=== PATIENT | male | born 1975 | race African-American/Black ===

== ENCOUNTER 2018-10-12 23:17 | Emergency (ER) | payer MEDICARE, MEDICAID ==
[~2018-10-12] VITALS: Ht 162.6 cm; Wt 53.0 kg
[2018-10-12 23:39] VITALS: BP 119/74
== END 2018-10-13 00:15 | disposition left against medical advice (07) ==
LOC: ER 23:17
DX: Z53.21 Procedure and treatment not carried out due to patient leaving prior to being seen by health care provider (principal)

== ENCOUNTER 2021-11-04 18:07 | Emergency (ER) | payer MEDICARE, MEDICAID ==
[~2021-11-04] VITALS: Ht 162.6 cm; Wt 68.0 kg
[2021-11-04] MEDS ORDERED: AMOX-424 MT (21:28)
[2021-11-04] MEDS ORDERED: IBUP-2030 MT (21:28)
[2021-11-04] MEDS ORDERED: IBUPROFEN 800MG TABLET PO ONE (21:30)
[2021-11-04] MEDS ORDERED: AMOXICILLIN/POTASSIUM CLAVULANATE 875/125MG TAB PO ONE (21:30)
[2021-11-04 22:11] VITALS: BP 132/111
== END 2021-11-04 22:15 | disposition home or self-care (01) ==
LOC: ER 18:07
DX: K04.7 Periapical abscess without sinus (principal); F12.10 Cannabis abuse, uncomplicated; F15.10 Other stimulant abuse, uncomplicated
CPT/HCPCS: 99283

== ENCOUNTER 2022-02-01 15:26 | Emergency (ER) | payer MEDICARE, MEDICAID ==
[~2022-02-01] VITALS: Ht 162.6 cm; Wt 80.0 kg
[~2022-02-01 15:26] MED LIST: AMOX-424 MT; IBUP-2030 MT
[2022-02-01] MEDS ORDERED: CEPH500C2 MT (18:00)
[2022-02-01 18:11] VITALS: BP 118/76
== END 2022-02-01 18:11 | disposition home or self-care (01) ==
LOC: ER 15:26
DX: L02.211 Cutaneous abscess of abdominal wall (principal); F12.10 Cannabis abuse, uncomplicated; F15.10 Other stimulant abuse, uncomplicated
CPT/HCPCS: 99283

== ENCOUNTER 2022-10-16 22:45 | Emergency (ER) | payer MEDICARE, MEDICAID ==
[~2022-10-16] VITALS: Ht 162.6 cm; Wt 52.0 kg
[~2022-10-16 22:45] MED LIST changes: +CEPH500C2 MT; +PETR5OIN3 TP
[2022-10-16 22:56] VITALS: BP 119/87
== END 2022-10-17 00:22 | disposition home or self-care (01) ==
LOC: ER 22:52
DX: Z76.0 Encounter for issue of repeat prescription (principal)
CPT/HCPCS: 99281

== ENCOUNTER 2023-11-02 22:39 | Emergency (ER) | payer MEDICAID, MEDICARE ==
[~2023-11-02] VITALS: Ht 167.6 cm; Wt 57.0 kg
[2023-11-02 22:50] VITALS: O2SAT 98
[2023-11-02 23:40] LABS: BASOPHILS % 0.1 % (0.0-2.0); EOSINOPHILS % 1.3 % (0.0-5.0); HEMATOCRIT. 47.3 % (42.0-52.0); HEMOGLOBIN. 16.2 g/dL (14.0-18.0); LYMPHOCYTES % 15.1 % (20.0-50.0); MEAN CORPUSCULAR HEMOGLOBIN 31.8 pg (28.0-32.0); MEAN CORPUSCULAR HGB CONC 34.3 g/dL (31.0-37.0); MEAN CORPUSCULAR VOLUME 92.7 fL (80.0-94.0); MEAN PLATELET VOLUME 6.4 fl (7.4-10.4); MONOCYTES % 7.6 % (2.0-8.0); NEUTROPHILS % 75.9 % (40.0-76.0); PLATELET 306 x1000/uL (130-400); RED CELL DISTRIBUTION WIDTH 14.1 % (11.6-14.6); WHITE BLOOD COUNT 4.5 x1000/uL (4.5-11.0)
[2023-11-03] MEDS: SODIUM CHLORIDE 0.9% 1,000 ML IV ONE (00:05)
[2023-11-03] MEDS: METOCLOPRAMIDE HCL 10MG/2ML VIAL IV STA (00:05)
[2023-11-03 01:01] VITALS: TEMP 98.4
[2023-11-03 01:19] LABS: ALANINE AMINOTRANSFERASE 16 IU/L (10-49); ALBUMIN 4.2 g/dL (3.2-4.8); ASPARTATE AMINOTRANSFERASE 20 IU/L (<34); BILIRUBIN TOTAL 0.5 mg/dL (0.1-1.0); CALCIUM 8.3 mg/dL (8.7-10.4); CARBON DIOXIDE 28 mEq/L (21-32); CHLORIDE 102 mEq/L (98-107); CREATININE 0.7 mg/dL (0.6-1.3); GLUCOSE 120 mg/dL (70-105); POTASSIUM 3.7 mEq/L (3.5-5.1); PROTEIN TOTAL 7.6 g/dL (6.0-8.3); SODIUM 134 mEq/L (136-145); UREA NITROGEN BLOOD 7 mg/dL (9-23)
[2023-11-03] MEDS ORDERED: IOHEXOL-300 100 ML BOTTLE ONE (02:46)
[2023-11-03] MEDS ORDERED: IMOD MT (04:19)
[2023-11-03 04:32] VITALS: BP 119/77; PULSE 83; RESP 12
== END 2023-11-03 04:48 | disposition home or self-care (01) ==
LOC: ER 22:39
DX: K52.89 Other specified noninfective gastroenteritis and colitis (principal); R19.7 Diarrhea, unspecified; F12.90 Cannabis use, unspecified, uncomplicated; F15.90 Other stimulant use, unspecified, uncomplicated
CPT/HCPCS: 99285; 96374; 80053; 83605; 83690; 85025; 36415; 74177; J2765; J7030; Q9967

== ENCOUNTER 2024-05-31 09:55 | Emergency (ER) | payer MEDICARE, MEDICAID ==
[~2024-05-31] VITALS: Ht 162.6 cm; Wt 55.0 kg
[~2024-05-31 09:55] MED LIST changes: +IMOD MT
[2024-05-31 10:16] VITALS: TEMP 99; O2SAT 99
[2024-05-31 12:57] LABS: BASOPHILS % 0.5 % (0.0-2.0); HEMATOCRIT. 44.7 % (42.0-52.0); HEMOGLOBIN. 14.9 g/dL (14.0-18.0); LYMPHOCYTES % 21.3 % (20.0-50.0); MEAN CORPUSCULAR HEMOGLOBIN 30.5 pg (28.0-32.0); MEAN CORPUSCULAR HGB CONC 33.3 g/dL (31.0-37.0); MEAN CORPUSCULAR VOLUME 91.6 fL (80.0-94.0); MEAN PLATELET VOLUME 6.5 fl (7.4-10.4); MONOCYTES % 9.3 % (2.0-8.0); NEUTROPHILS % 65.9 % (40.0-76.0); PLATELET 260 x1000/uL (130-400); RED BLOOD CELL COUNT 4.88 mill/uL (4.7-6.1); RED CELL DISTRIBUTION WIDTH 13.4 % (11.6-14.6); WHITE BLOOD COUNT 4.4 x1000/uL (4.5-11.0)
[2024-05-31] MEDS: IBUPROFEN 600MG TABLET PO NR (13:04)
[2024-05-31 13:07] LABS: CHLORIDE 103 mEq/L (98-107); POTASSIUM 3.6 mEq/L (3.5-5.1); SODIUM 138 mEq/L (136-145)
[2024-05-31 13:08] LABS: CALCIUM 9.5 mg/dL (8.7-10.4); CARBON DIOXIDE 31 mEq/L (21-32)
[2024-05-31 13:13] LABS: CREATININE 0.9 mg/dL (0.6-1.3); GLUCOSE 107 mg/dL (70-105); UREA NITROGEN BLOOD 8 mg/dL (9-23)
[2024-05-31] MEDS: LIDOCAINE HCL 1% 20ML VIAL INFIL NR (13:30)
[2024-05-31] MEDS ORDERED: CEPH500T MT (14:16)
[2024-05-31] MEDS ORDERED: SULF1TAB48 MT (14:16)
[2024-05-31 14:32] VITALS: BP 124/66; PULSE 68; RESP 16; O2SAT 99
== END 2024-05-31 14:46 | disposition home or self-care (01) ==
LOC: ER 09:55
DX: L02.31 Cutaneous abscess of buttock (principal); F12.90 Cannabis use, unspecified, uncomplicated; F15.90 Other stimulant use, unspecified, uncomplicated; Z79.899 Other long term (current) drug therapy
CPT/HCPCS: 99283; 80048; 85025; 36415; J3490

== ENCOUNTER 2024-08-14 05:05 | Inpatient (IN) | payer MEDICARE, MEDICAID ==
[~2024-08-14] VITALS: Ht 177.8 cm; Wt 57.2 kg
[~2024-08-14 05:05] MED LIST changes: +CEPH500T MT; +SULF1TAB48 MT
[2024-08-14 05:08] VITALS: O2SAT 100
[2024-08-14 06:28] LABS: BASOPHILS % 0.3 % (0.0-2.0); EOSINOPHILS % 1.4 % (0.0-5.0); HEMATOCRIT. 47.2 % (42.0-52.0); HEMOGLOBIN. 15.7 g/dL (14.0-18.0); LYMPHOCYTES % 17.4 % (20.0-50.0); MEAN CORPUSCULAR HEMOGLOBIN 30.5 pg (28.0-32.0); MEAN CORPUSCULAR HGB CONC 33.3 g/dL (31.0-37.0); MEAN CORPUSCULAR VOLUME 91.3 fL (80.0-94.0); MEAN PLATELET VOLUME 6.5 fl (7.4-10.4); MONOCYTES % 8.4 % (2.0-8.0); NEUTROPHILS % 72.5 % (40.0-76.0); PLATELET 295 x1000/uL (130-400); RED BLOOD CELL COUNT 5.17 mill/uL (4.7-6.1); RED CELL DISTRIBUTION WIDTH 13.1 % (11.6-14.6); WHITE BLOOD COUNT 5.4 x1000/uL (4.5-11.0)
[2024-08-14 06:33] LABS: CHLORIDE 102 mEq/L (98-107); POTASSIUM 4.1 mEq/L (3.5-5.1); SODIUM 137 mEq/L (136-145)
[2024-08-14 06:34] LABS: CALCIUM 9.4 mg/dL (8.7-10.4); CARBON DIOXIDE 29 mEq/L (21-32)
[2024-08-14 06:39] LABS: CREATININE 0.8 mg/dL (0.6-1.3); GLUCOSE 141 mg/dL (70-105); UREA NITROGEN BLOOD 7 mg/dL (9-23)
[2024-08-14] MEDS ORDERED: KETOROLAC 30MG/ML VIAL IV STA (07:38)
[2024-08-14] MEDS ORDERED: ONDANSETRON HCL 4MG/2ML INJ IV ONE (07:45)
[2024-08-14] MEDS ORDERED: SODIUM CHLORIDE 0.9% 1,000 ML IV ONE (07:45)
[2024-08-14 09:44] LABS: ALANINE AMINOTRANSFERASE 12 IU/L (10-49); ALBUMIN 4.2 g/dL (3.2-4.8); ASPARTATE AMINOTRANSFERASE 17 IU/L (<34); BILIRUBIN TOTAL 0.3 mg/dL (0.1-1.0); PROTEIN TOTAL 8.2 g/dL (6.0-8.3)
[2024-08-14] MEDS ORDERED: ONDANSETRON HCL 4MG/2ML INJ IV PRN (09:45)
[2024-08-14] MEDS ORDERED: IPRATROPIUM/ALBUTEROL 0.5-3(2.5)MG/3ML NEB HHN PRN (09:45)
[2024-08-14] MEDS ORDERED: GUAIFENESIN 200MG/10ML SUGAR FREE UDC PO PRN (09:45)
[2024-08-14] MEDS ORDERED: ACETAMINOPHEN 325MG TABLET PO PRN ×2 (09:45)
[2024-08-14] MEDS ORDERED: DOCUSATE SODIUM 100MG CAPSULE PO PRN (09:45)
[2024-08-14] MEDS ORDERED: LOPERAMIDE HCL 2MG CAPSULE PO PRN (09:45)
[2024-08-14 09:49] LABS: BILIRUBIN DIRECT < 0.1 mg/dL (<=3.0)
[2024-08-14] MEDS: THIAMINE HCL 100MG TABLET PO SCH (10:00)
[2024-08-14 13:30] VITALS: BP 119/70; PULSE 84; TEMP 36.22512; O2SAT 98
[2024-08-14] MEDS: SODIUM CHLORIDE 0.9% 1,000 ML IV SCH (13:30)
[2024-08-14 13:35] VITALS: BP 119/70; PULSE 84; RESP 20; TEMP 36.2512
[2024-08-14] MEDS: PIPERACILLIN/TAZO 3.375G/50ML 50 ML IV SCH (14:27)
[2024-08-14] MEDS: KETOROLAC 15MG/ML VIAL IV PRN (14:28)
[2024-08-14 16:00] VITALS: BP 115/73; PULSE 93; TEMP 36.16956; O2SAT 98
[2024-08-14 20:00] VITALS: BP 114/69; PULSE 91; RESP 20; TEMP 36.44736; O2SAT 97
[2024-08-15] VITALS: BP 118/79; PULSE 78; RESP 20; TEMP 36.55848; O2SAT 98
[2024-08-15 04:00] VITALS: BP 116/74; PULSE 76; RESP 19; TEMP 36.78072; O2SAT 99
[2024-08-15] MEDS: PANTOPRAZOLE SODIUM 40 MG/VIAL IV SCH (06:16)
[2024-08-15 08:00] VITALS: BP 120/78; PULSE 89; RESP 20; TEMP 36.114; O2SAT 100
[2024-08-15 12:00] VITALS: BP 115/72; PULSE 68; RESP 20; TEMP 36.50292; O2SAT 100
[2024-08-15 12:21] LABS: BASOPHILS % 0.4 % (0.0-2.0); EOSINOPHILS % 4.8 % (0.0-5.0); HEMATOCRIT. 50.1 % (42.0-52.0); HEMOGLOBIN. 16.4 g/dL (14.0-18.0); LYMPHOCYTES % 45.3 % (20.0-50.0); MEAN CORPUSCULAR HEMOGLOBIN 30.1 pg (28.0-32.0); MEAN CORPUSCULAR HGB CONC 32.7 g/dL (31.0-37.0); MEAN CORPUSCULAR VOLUME 91.9 fL (80.0-94.0); NEUTROPHILS % 39.5 % (40.0-76.0); PLATELET 284 x1000/uL (130-400); RED BLOOD CELL COUNT 5.45 mill/uL (4.7-6.1); RED CELL DISTRIBUTION WIDTH 13.1 % (11.6-14.6); WHITE BLOOD COUNT 3.2 x1000/uL (4.5-11.0)
[2024-08-15 12:33] LABS: CHLORIDE 100 mEq/L (98-107); POTASSIUM 3.7 mEq/L (3.5-5.1)
[2024-08-15 12:34] LABS: CARBON DIOXIDE 27 mEq/L (21-32); SODIUM 134 mEq/L (136-145)
[2024-08-15 12:39] LABS: CREATININE 0.9 mg/dL (0.6-1.3); GLUCOSE 111 mg/dL (70-105); UREA NITROGEN BLOOD 6 mg/dL (9-23)
[2024-08-15 12:41] LABS: THYROID STIMULATING HORMONE 3.31 uIU/mL (0.55-4.78)
[2024-08-16 08:08] LABS: % CD 4 POS. LYMPHOCYTES 37.8 % (30.8-58.5); % CD 8 POS. LYMPH 42.7 % (12.0-35.5); ABSOLUTE CD 3 972 /uL (622-2402); ABSOLUTE CD 4 HELPER 454 /uL (359-1519); ABSOLUTE CD 8 SUPPRESSOR 512 /uL (109-897); ABSOLUTE EOSINOPHILS 0.1 x10E3/uL (0.0-0.4); ABSOLUTE LYMPHOCYTES 1.2 x10E3/uL (0.7-3.1); ABSOLUTE MONOCYTES 0.4 x10E3/uL (0.1-0.9); ABSOLUTE NEUTROPHILS 2.6 x10E3/uL (1.4-7.0); BASOPHILS 1 % (Not Estab.); CD4/CD8 RATIO 0.89 (0.92-3.72); EOSINOPHILS 3 % (Not Estab.); HEMATOCRIT 50.2 % (37.5-51.0); HEMOGLOBIN 16.1 g/dL (13.0-17.7); IMMATURE GRANULOCYTES 0 % (Not Estab.); LYMPHOCYTES 27 % (Not Estab.); MEAN CORPUSCULAR HEMOGLOBIN 29.2 pg (26.6-33.0); MEAN CORPUSCULAR HGB CONC. 32.1 g/dL (31.5-35.7); MEAN CORPUSCULAR VOLUME 91 fL (79-97); MONOCYTES 9 % (Not Estab.); NEUTROPHILS 60 % (Not Estab.); PLATELETS 304 x10E3/uL (150-450); RBC 5.51 x10E6/uL (4.14-5.80); RED CELL DISTRIBUTION WIDTH 12.8 % (11.6-15.4); WBC 4.3 x10E3/uL (3.4-10.8)
== END 2024-08-15 16:34 | disposition left against medical advice (07) | DRG 977 ==
LOC: ER 05:05 → 6WST 08:15 → EDBEDREQ 08:19 → EDBEDREQTM 08:19
PROVIDERS: ADMIT Internal Medicine; ATTEND Internal Medicine
DX: K52.9 Noninfective gastroenteritis and colitis, unspecified (principal); B20 Human immunodeficiency virus [HIV] disease; Z59.00 Homelessness unspecified; Z53.29 Procedure and treatment not carried out because of patient's decision for other reasons; K63.9 Disease of intestine, unspecified; R15.9 Full incontinence of feces; F55.2 Abuse of laxatives; Z91.199 Patient's noncompliance with other medical treatment and regimen due to unspecified reason; Z79.899 Other long term (current) drug therapy
CPT/HCPCS: 36415; 80048; 80076; 80305; 82270; 84145; 84443; 85025; 85651; 86359; 86360; 87015; 87045; 87177; 87209; 87427; 87449; 87493; 99291; J1885; J2470; J2543; J7030

== ENCOUNTER 2024-11-07 20:22 | Emergency (ER) | payer MEDICARE, BC ==
[~2024-11-07] VITALS: Ht 162.6 cm; Wt 57.0 kg
[2024-11-07 20:33] VITALS: O2SAT 99
[2024-11-08] MEDS ORDERED: SULF1TAB48 MT (00:12)
[2024-11-08 00:27] VITALS: BP 126/70; PULSE 91; RESP 17; TEMP 37.1; O2SAT 99
[2024-11-08] MEDS ORDERED: CEFTRIAXONE SODIUM 500MG VIAL IM ONE (00:30)
[2024-11-08] MEDS ORDERED: LIDOCAINE HCL 1% 20ML VIAL INFIL ONE (00:30)
[2024-11-08] MEDS ORDERED: KETOROLAC 15MG/ML VIAL IM ONE (00:30)
== END 2024-11-08 00:28 | disposition home or self-care (01) ==
LOC: ER 20:22
DX: L02.31 Cutaneous abscess of buttock (principal); F12.90 Cannabis use, unspecified, uncomplicated; F15.90 Other stimulant use, unspecified, uncomplicated; Z79.899 Other long term (current) drug therapy
CPT/HCPCS: 99283; J1885; J0696; J3490

== ENCOUNTER 2024-12-14 01:52 | Emergency (ER) | payer MEDICARE, BC ==
[2024-12-14 02:15] VITALS: PULSE 108; RESP 18; O2SAT 100
[2024-12-14] MEDS ORDERED: BO1 TP (04:30)
[2024-12-14] MEDS ORDERED: CEPH500C2 MT (04:30)
== END 2024-12-14 04:45 | disposition home or self-care (01) ==
LOC: ER 01:52
DX: L02.31 Cutaneous abscess of buttock (principal); F12.10 Cannabis abuse, uncomplicated; F15.10 Other stimulant abuse, uncomplicated; Z98.890 Other specified postprocedural states; Z79.899 Other long term (current) drug therapy
CPT/HCPCS: 99283